=== PATIENT | female | born 1950 | race African-American/Black ===

== ENCOUNTER 2016-09-14 00:50 | Emergency (ER) | payer MEDICARE, MEDICAID ==
[2016-09-14 01:06] VITALS: BP 127/77; PULSE 68; TEMP 97.7; BMI 24.5
--- NOTE | 2016-09-14 02:39 | EDPRACDOC ---
- General Information Chief Complaint: Abdominal Pain Stated Complaint: RT FLANK/ABD PAIN Time Seen by Provider: 09/14/16 01:31 Information Source: Patient Mode Of Arrival: Ambulance Home Medications: Home Medications Citalopram (anti-depressant) [Celexa] 30 mg PO QAM 11/27/12 Clopidogrel Bisulfate [Plavix] 75 mg PO QAM 11/27/12 Alprazolam [Xanax] 0.25 mg PO BID PRN 08/03/13 Gabapentin [Neurontin] 300 mg PO BID 08/03/13 Metoprolol Tartrate [Lopressor] 50 mg PO BID 11/23/13 Quetiapine Fumarate [Seroquel] 25 mg PO HS 11/23/13 Atorvastatin [Lipitor 40 mg Tablet] 40 mg PO DAILY 01/29/14 Lansoprazole [Prevacid] 30 mg PO DAILY 01/29/14 hydrALAZINE (Cardiovascular) [Apresoline] 10 mg PO TID 01/29/14 Isosorbide Mononitrate [Isosorbide Mononitrate ER] 30 mg PO DAILY 12/30/14 Metformin HCl [Glucophage] 500 mg PO QAM 12/30/14 Nitroglycerin [Nitrostat] 0.4 mg SL .[id number] PRN 12/30/14 Trazodone HCl [Desyrel] 100 mg PO QHS 12/30/14 Azithromycin [Zithromax] 250 mg PO DAILY #6 tablet 06/26/15 Levothyroxine [Synthroid, Levoxyl] 75 mcg PO DAILY 06/26/15 Prednisone [Deltasone, Orasone] 20 mg PO DAILY #12 tab 06/26/15 Gentamicin Sulfate 3.5 gm OD BID #1 oint...g. 11/16/15 Oxycodone Immediate Release [Oxycodone Immediate Release (OxyIR)] 5 mg PO Q6H PRN #30 tab 11/16/15 Ciprofloxacin HCl [Cipro] 500 mg PO BID #14 tab 09/14/16 Allergies/Adverse Reactions: Allergies Allergy/AdvReac Type Severity Reaction Status Date / Time ibuprofen [From Advil] Allergy Rash-Genera Verified 11/16/15 09:52 lized - History of Present Illness Onset: today at 1pm Pain Location: Reports: Diffuse, RUQ, RLQ, Flank Pain Context: Reports: Spontaneous Pain Severity: Mild Pain Quality: Reports: Aching, Burning Pain Radiation: Reports: Flank (RIGHT), Back Female Abdominal History: Reports: UTI Female Associated Signs & Symptoms: Reports: Nausea, Dysuria, Urgency. 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 Denies: Seizures, Dementia, Epilepsy, Guillian-Wright Syndrome, Parkinson's, Multiple Sclerosis, Myasthenia Gravis Cardiac History: Reports: Coronary Artery Disease, Atrial Fibrillation, Hypertension, Congestive Heart Failure, Heart Attack, Cardiac Catheterization, CABG, Hypercholesterolemia. Denies: Pacemaker, Cardiomyopathy, Valvular Heart Disease, Syncope Respiratory History: Reports: COPD, Chronic Bronchitis. 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 Denies: Gout, Rheumatoid Arthritis , Osteoarthritis Psychological History: Reports: Depression, Anxiety, Bipolar Disorder. Denies: Schizophrenia Systemic History: Reports: Diabetes, Hyperthyroidism. Denies: Cancer, Hypothyroidism Surgical History: Reports: Appendectomy, Cholecystectomy, CABG, Hysterectomy, Angioplasty, Cardiac Catheterization. Denies: Hernia Surgery - Family Medical History Reports: Hypertension (MOTHER), Diabetes (MOTHER), Cancer (MOTHER), Cardiac Disorders (MOTHER). Denies: Stroke - Social Medical History Smoking Status: Light tobacco smoker (less than 5/day) ETOH: None Substance Abuse: None Lives With: Family Lives In: Home EDM Review of Systems - Review of Systems ROS Negative Except as Marked: Yes All systems reviewed and were negative except as marked - Physical Exam Constitutional: No apparent distress, Alert, Well nourished, Well appearing. negative: Distress Oriented to: Time, Person, Place Last recorded Vital Signs: Last Vital Signs Temp 97.7 F 09/14/16 01:01 Pulse 68 09/14/16 01:01 Resp 20 09/14/16 01:01 BP 127/77 09/14/16 01:01 Pulse Ox 93 09/14/16 01:01 Oxygen Pulse Oxygen Saturation 93 O2 Device Oxygen Flow Rate Fraction of Inspired Oxygen ( FIO2) - HEENT Head: Normal Eye Exam: Normal. negative: Pale Conjunctiva, Scleral Icterus Oropharynx: Normal. negative: Membranes Dry - Respiratory/Cardiovascular Respiratory: Normal - CTA Cardiovascular: Normal - GI Auscultation: Normal Palpation: Normal Tenderness: Non tender Garcia's Sign: Negative - Musculoskeletal Back: Normal. negative: CVA Tenderness Extremities: Normal - Integumentary Skin: Normal, Warm, Dry - Neurologic Memory Impaired: Normal Mood Description: Normal Thought: Coherent Perception: Normal - Results Urine Color Yellow 09/14/16 02:55 Urine Clarity Cldy 09/14/16 02:55 Urine pH 6.0 (5.0-8.0) 09/14/16 02:55 Ur Specific [place] 1.010 (1.003-1.035) 09/14/16 02:55 Urine Protein 2+ (NEG/TRACE) H 09/14/16 02:55 Urine Glucose (UA) Neg (NEGATIVE) 09/14/16 02:55 Urine Ketones Neg (NEGATIVE) 09/14/16 02:55 Urine Occult Blood 3+ (NEG/TRACE) H 09/14/16 02:55 Urine Nitrite Neg (NEGATIVE) 09/14/16 02:55 Urine Bilirubin Neg (NEGATIVE) 09/14/16 02:55 Urine Urobilinogen <2.0 MG/DL (0-1) 09/14/16 02:55 Ur Leukocyte Esterase 2+ (NEGATIVE) H 09/14/16 02:55 Urine RBC 10-20 (0-5) H 09/14/16 02:55 Urine WBC 20-30 (0-5) H 09/14/16 02:55 Ur Epithelial Cells 3+ 09/14/16 02:55 Urine Bacteria 1+ (NEG/FEW) H 09/14/16 02:55 Lab Results 09/14/16 02:55 Urine Color Yellow Urine Clarity Cldy Urine pH 6.0 Ur Specific [place] 1.010 Urine Protein 2+ H Urine Glucose (UA) Neg Urine Ketones Neg Urine Occult Blood 3+ H Urine Nitrite Neg Urine Bilirubin Neg Urine Urobilinogen <2.0 Ur Leukocyte Esterase 2+ H Urine RBC 10-20 H Urine WBC 20-30 H Ur Epithelial Cells 3+ Urine Bacteria 1+ H - Departure Disposition: Home Condition: Stable Final Diagnosis: Urinary tract infection Qualifiers: Urinary tract infection type: acute cystitis Instructions: Acute Abdominal Pain (ED), Urinary Tract Infection in Women (ED) , Dysuria Education/Counseling Given To: Patient, Significant Other Education/Counseling Given Regarding: Diagnosis, Treatment, Prognosis Referrals: Dexter Guerrero MD [Primary Care Provider] - One Week Prescriptions: Ciprofloxacin HCl [Cipro] 500 mg PO BID #14 tab
[2016-09-14 03:13] LABS: LEUKOCYTES/URINE 2+ (NEGATIVE); NITRITE/URINE NEG (NEGATIVE); URINE OCCULT BLOOD 3+ (NEG/TRACE); WBC/URINE 20-30 (0-5)
[2016-09-14] MEDS ORDERED: CIPROFLOXACIN HCL 500 MG TAB PO ONE (03:36)
== END 2016-09-14 03:55 | disposition home or self-care (01) ==
LOC: ED 00:50
DX: N30.00 Acute cystitis without hematuria (principal)
CPT/HCPCS: 81001; 87086; 99283; A9270; J3490